=== PATIENT | male | born 1975 | race Caucasian/White ===

== ENCOUNTER 2022-10-03 10:12 | Outpatient (AMB) | payer OTHER, SELFPAY ==
--- NOTE | 2022-10-03 10:30 | MHC.OFFVIS ---
Intake Vital Signs 10/03/22 10:31 Height 5 ft 7 in Weight 194 lb 14.218 oz BMI 30.5 BP 114/73 Blood Pressure Location Lt brachial Position Sitting Pulse 66 Intake Visit Reasons: New Pt: Hemorrhoids Intake Note: Bartolo presents in office as a new.patient for a Hemorrhoids PT CC: pt reports having rectal bleeding due to hemorrhoids pt denies any other GI Issues. Byproducts Maker Required: Yes Byproducts Maker Language: Armenian Accompanied by: Self / Same As Patient Allergies No Known Allergies Allergy (Verified 10/03/22 10:33) HPI New Pt: Hemorrhoids HPI Details 47 years old male with past medical history MS, status post tonsillectomy in 2021 is here today for evaluation hemorrhoids. Patient was sent by his PCP states that his hemorrhoids are getting worse. Patient reports to have normal bowel movements. Denies melena, occasional blood after bowel movement when he wipes. Patient denies unintentional weight loss or ribbon like stools. Patient denies any diarrhea. Denies any abdominal pain or discomfort. Patient denies any other GI concerning symptoms [facility] Surgical History (Updated 10/03/22 @ 10:35 by Terrance Butcher) History of pancreatectomy Social History (Updated 10/03/22 @ 10:34 by Terrance Butcher) Household Members: Significant Other Alcohol intake: never Patient Tobacco Use Status: Never used Tobacco Review of Systems Const Denies weight gain and Denies weight loss ENT Reports no additional complaints, Denies dysphagia and Denies odynophagia Card Reports no additional complaints Resp Reports no additional complaints GI Denies abdominal pain, Denies belching, Denies melena, Denies bloating, Denies change in bowel habits, Denies dysphagia, Denies excessive flatus, Denies dyspepsia, Denies heartburn, Denies diarrhea, Denies loose stools, Denies nausea, Denies odynophagia, Denies vomiting and Reports other (rectal pain) Reports no additional complaints Musc Reports no additional complaints Neuro Reports no additional complaints Psych Reports no additional complaints Endo Reports no additional complaints Physical Exam Vital Signs: Last Vital Signs Pulse 66 10/03/22 10:31 BP 114/73 10/03/22 10:31 BMI result Body Mass Index 30.5 Const General: healthy appearing, no acute distress and well developed Nutritional Appearance: obese Orientation/consciousness: patient oriented x3 HEENT Head: Yes normal to inspection, Yes normocephalic and Yes atraumatic Face and sinus: Yes normal facial exam Mouth: Normal oral and palatal mucosa present Eyes General: appearance normal, both eyes and all related structures Neck Neck: Yes normal visual inspection, Yes full ROM and Yes trachea midline Thyroid: Thyroid normal Resp Effort & Inspection: normal respiratory effort, able to speak in complete sentences, no tracheal deviation and symmetric chest movement Auscultation: clear to auscultation bilaterally Cardio Rate: regular rate Heart sounds: S1 normal heart sound present and S2 normal heart sound present GI Inspection: Yes normal to inspection, No distended and Yes obesity Palpation (GI): Soft to palpation, not firm, nontender and No hepatosplenomegaly present Auscultation: normal bowel sounds General: Yes no CVA tenderness Back/Spine/Pelvis Back: no CVA tenderness Skin General skin exam: elasticity normal, turgor normal and dry skin Neuro General: patient oriented x3 Psych Appearance: grossly normal Mental Status: mental status grossly normal Speech and movement: Normal speech and movement present Affect: normal affect Assessment & Plan Assessment & Plan (1) Rectal pain: Code(s): K62.89 - Other specified diseases of anus and rectum Plan: Patient will try Proctosol couple times a day and will return in 5 weeks to discuss colonoscopy. Sitz baths with Epsom salts. May use donut pillow when sitting. Patient is agreeable to this plan and verbalizes understanding of instructions. He was given the opportunity to ask questions and all questions answered. Thank you for allowing me to participate in his care Medications: New hydrocortisone 2.5% (Proctosol HC) 1 appl [place] BID-QID PRN 30 grams 2RF hemorrhoids K64.9 - Unspecified hemorrhoids Coding Level of Care Code New Pt Level 3 (29442) Diagnoses Rectal pain K62.89 Time Spent (min) 40 Comment 30 minutes spent with patient and additional 10 minutes spent reviewing his records
[2022-10-03 10:31] VITALS: BP 114/73; PULSE 66; BMI 30.5
== END 2022-10-03 11:30 | disposition home or self-care (01) ==
PROVIDERS: Visit Provider Nurse Practitioner Family
DX: K62.89 Other specified diseases of anus and rectum (principal)
CPT/HCPCS: 99203

== ENCOUNTER → 2022-10-03 10:12 | Outpatient (BNVA) | payer OTHER, SELFPAY | PROVIDERS: Visit Provider Nurse Practitioner Family ==

== ENCOUNTER → 2022-11-07 15:49 | Outpatient (BNVA) | payer OTHER, SELFPAY | PROVIDERS: PCP Internal Medicine Geriatric Medicine; Visit Provider Nurse Practitioner Family ==

== ENCOUNTER 2022-11-07 15:56 | Outpatient (AMB) | payer OTHER, SELFPAY ==
--- NOTE | 2022-11-07 15:50 | MHC.OFFVIS ---
Intake Vital Signs 11/07/22 15:52 Height 5 ft 7 in Weight 191 lb 5.78 oz BMI 30.0 BP 93/62 Blood Pressure Location Lt brachial Position Sitting Pulse 73 Intake Visit Reasons: 5 week follow up Intake Note: Bartolo presents in office as a est.patient for a 5week f/u for rectal pain. PT CC: pt reports having rectal pain pt denies any other GI Issues Clinical Law Professor Required: Yes Clinical Law Professor Language: Product Applications Scientist Name: Yara Accompanied by: Self / Same As Patient Allergies No Known Allergies Allergy (Verified 11/07/22 15:53) HPI 5 week follow up HPI Details LAST VISIT: Rectal pain Patient will try Proctosol couple times a day and will return in 5 weeks to discuss colonoscopy. Sitz baths with Epsom salts. May use donut pillow when sitting. Patient is agreeable to this plan and verbalizes understanding of instructions. He was given the opportunity to ask questions and all questions answered. ? Thank you for allowing me to participate in his care Plan Medications New hydrocortisone 2.5% (Proctosol HC) 1 appl [place] BID-QID PRN 30 grams 2RF hemorrhoids K64.9 TODAY'S VISIT Patient is here today for follow-up and to discuss going for colonoscopy. Patient never had colonoscopy in the past. Patient still feels like he has perirectal discomfort. Patient denies any blood he in his stools. Patient denies any family history of colorectal cancer. No history of sleep apnea. Not on any anticoagulation medication. No history of infectious diseases in the past or present. Patient reports that he is moving his bowels without any issues. Denies any cardiac or respiratory symptoms. [facility] Surgical History History of pancreatectomy Social History Household Members: Significant Other Alcohol intake: never Patient Tobacco Use Status: Never used Tobacco Review of Systems Const Denies weight gain and Denies weight loss ENT Reports no additional complaints, Denies dysphagia and Denies odynophagia Card Reports no additional complaints Resp Reports no additional complaints GI Denies abdominal pain, Denies belching, Denies melena, Denies bloating, Denies change in bowel habits, Denies dysphagia, Denies excessive flatus, Denies dyspepsia, Denies heartburn, Denies diarrhea, Denies loose stools, Denies nausea, Denies odynophagia, Denies vomiting and Reports other (Perirectal pain) Reports no additional complaints Musc Reports no additional complaints Neuro Reports no additional complaints Psych Reports no additional complaints Endo Reports no additional complaints Physical Exam Vital Signs: Last Vital Signs Pulse 73 11/07/22 15:52 BP 93/62 11/07/22 15:52 BMI result Body Mass Index 30.0 Const General: healthy appearing, no acute distress and well developed Nutritional Appearance: obese Orientation/consciousness: patient oriented x3 HEENT Head: Yes normal to inspection, Yes normocephalic and Yes atraumatic Face and sinus: Yes normal facial exam Mouth: Normal oral and palatal mucosa present Throat: Yes posterior oropharynx normal, Yes tonsils normal and Yes uvula midline Eyes General: appearance normal, both eyes and all related structures Neck Neck: Yes normal visual inspection, Yes full ROM and Yes trachea midline Thyroid: Thyroid normal Resp Effort & Inspection: normal respiratory effort, able to speak in complete sentences, no tracheal deviation and symmetric chest movement Auscultation: clear to auscultation bilaterally Cardio Rate: regular rate Heart sounds: S1 normal heart sound present and S2 normal heart sound present GI Inspection: Yes normal to inspection, No distended and Yes obesity Palpation (GI): Soft to palpation, not firm, nontender and No hepatosplenomegaly present Auscultation: normal bowel sounds General: Yes no CVA tenderness Back/Spine/Pelvis Back: no CVA tenderness Skin General skin exam: elasticity normal, turgor normal and dry skin Neuro General: patient oriented x3 Psych Appearance: grossly normal Mental Status: mental status grossly normal Speech and movement: Normal speech and movement present Assessment & Plan Assessment & Plan (1) Rectal pain: Code(s): K62.89 - Other specified diseases of anus and rectum Plan: Patient continues with the perirectal pain. Patient states that Proctosol was not helpful. (2) Screen for colon cancer: Code(s): Z12.11 - Encounter for screening for malignant neoplasm of colon Plan: Patient denies any issues with anesthesia in the past. No history of sleep apnea. Not on any anticoagulation medications. Patient denies any cardiac or respiratory symptoms. What to expect before during and after the procedure discussed with patient. The importance of good bowel prep and clear liquid diet discussed with patient. I will see him after the procedure, sooner on as needed basis. Patient is agreeable to this plan and verbalizes understanding of instructions. He was given the opportunity to ask questions questions answered. Thank you for allowing me to participate in his care Coding Level of Care Code Est Pt Level 3 (80691) Diagnoses Rectal pain K62.89 Screen for colon cancer Z12.11 Time Spent (min) 30 Comment 20 minutes spent with patient and additional 10 minutes spent reviewing his records
[2022-11-07 15:52] VITALS: BP 93/62; PULSE 73
== END 2022-11-07 16:32 | disposition home or self-care (01) ==
PROVIDERS: PCP Internal Medicine Geriatric Medicine; Visit Provider Nurse Practitioner Family
DX: K62.89 Other specified diseases of anus and rectum (principal); Z12.11 Encounter for screening for malignant neoplasm of colon
CPT/HCPCS: 99213

== ENCOUNTER 2023-01-30 09:49 | Day surgery (SDC) | payer OTHER, SELFPAY ==
--- NOTE | 2023-01-29 09:06 | HO.ANESPROP2 ---
Documented by User: Mahsa Yeung NP 01/29/23 09:07 HPI - Anesthesia Eval Consult details Narrative: 47yo M for Colonoscopy [facility] Surgical History Surgical History History of pancreatectomy Social History Household Members: Significant Other Alcohol intake: never Patient Tobacco Use Status: Never used Tobacco Have you been hit, kicked, punched, or otherwise hurt by someone within the past year? If so, by whom?: No Advance Directives: No Advance Directives Information Provided: Yes Recently lost weight without trying: No Eating poorly because of decreased appetite: No Nutrition Risks: No Nutritional Risk Poor oral hygiene: No Meds Allergies Allergy/AdvReac Type Severity Reaction Status Date / Time No Known Allergies Allergy Verified 11/07/22 15:53 Assessment and Plan Assessment Anesthesia Assessment: Chart Reviewed Documented by User: Ashlee Hale MD 01/30/23 11:14 [facility] Family History Family history of problems with anesthesia: No Surgical History Surgical History History of pancreatectomy History of Problems with Anesthesia: No Social History Household Members: Significant Other Alcohol intake: never Patient Tobacco Use Status: Never used Tobacco Have you been hit, kicked, punched, or otherwise hurt by someone within the past year? If so, by whom?: No Advance Directives: No Advance Directives Information Provided: Yes Recently lost weight without trying: No Eating poorly because of decreased appetite: No Nutrition Risks: No Nutritional Risk Poor oral hygiene: No Meds Allergies Allergy/AdvReac Type Severity Reaction Status Date / Time No Known Allergies Allergy Verified 11/07/22 15:53 Exam Airway Mallampati Class: II TM Dist: >3cm Neck ROM: Full Assessment and Plan Assessment Anesthesia Assessment: Anesthesia Plan Discussed Final Anesthetic Review Family History of Problems with Anesthesia: No History of Problems with Anesthesia: No NPO: Yes ASA Class: II Final Preanesthetic Review: No Changes in Pt Med Stat, Meds/Allgs Chart Reviewed, Consent Obtained/Reviewed and Anes Risks/Benef Reviewed Patient Risk: Low Procedure Risk: Low Anesthetic Plan Anesthetic Plan: MAC: Disposition: Standard PACU
[2023-01-30 10:27] VITALS: BMI 29.0
[2023-01-30 10:48] VITALS: BP 114/75; PULSE 74; RESP 18; TEMP 36.9; O2SAT 98
[2023-01-30] MEDS: Lactated Ringers 1,000 ML 100 ML IVCONT (10:50)
--- NOTE | 2023-01-30 11:17 | MHC.SHP ---
Pre-Procedural Eval Section A Date of Service: 01/30/23 Section B Chief Complaint: screening Relevant Family History (Specify if Yes): No Relevant Social History: None Present Medications: see Short Stay Collaborative assessment Medical History: No relevant PMH History of Previous Operations: Relevant previous surgery/procedure and date(s) (History of pancreatectomy) Allergies: Allergies Allergy/AdvReac Type Severity Reaction Status Date / Time No Known Allergies Allergy Verified 11/07/22 15:53 Review of Systems Sugical H&P ROS: Negative: Constitution, Cardiovascular, Respiratory, Neurological, Psychiatric, Hem-Onc, Allergic/Immunologic, Gastrointestinal, Genitourinary, Musculoskeletal, Integumentary, Endocrine and Eyes/Ears/Nose/Throat Exam Surgical H&P Exam: Normal: HEENT, Normal: Heart, Normal: Lungs, Normal: Extremities, Normal: Abdomen, Normal: Skin and Normal: Neurological Plan Diagnosis/Plan: Unchanged I have reviewed the history and physical and performed a pertinent physical examination on my patient. No changes have occurred unless specified. Time Spent With Patient Time: Total time managing care of this patient today ____ minutes.
--- NOTE | 2023-01-30 11:54 | P.OP_ITS ---
Operative Note Operative Note Date of Service: 01/30/23 Narrative: Operative Information Procedure Description: Colonoscopy Indication: screening Anesthesia: MAC COLONOSCOPY Instrument: Olympus variable stiffness pediatric scope 190L Colonoscopy Monitoring: Vital signs and clinical assessment, continuous EKG monitoring, Pulse oximetry, Carbon Dioxide monitoring and blood pressure monitoring were done throughout the procedure. Colon withdrawal time was 6 minutes. Procedure: The patient was placed in the left lateral decubitis position and pre-procedure medications were administered. After a digital rectal examination of the ano-rectum, the video colonoscope was inserted into the rectum and advanced through the colon to the cecum/TI. The colonoscope was slowly withdrawn in a retrograde panoramic fashion and the colon mucosa was carefully examined including a retroflexed view of the rectum. Findings and interventions are described below. Procedure Difficulty: easy Findings: Terminal Ileum-normal Right sided retroflexion was normal Cecum:normal Ascending Colon: normal Transverse Colon -normal Descending Colon:normal Sigmoid Colon: normal Rectum: Retroflexion with small internal hemorrhoids, grade I Anorectum - normal Colon preparation: [place] Bowel Preparation Scale Right colon; 2 Transverse colon: 3 Left colon; 3 (0 = Unprepared colon segment with mucosa not seen due to solid stool that cannot be cleared. 1 = Portion of mucosa of the colon segment seen, but other areas of the colon segment not well seen due to staining, residual stool and/or opaque liquid. 2 = Minor amount of residual staining, small fragments of stool and/or opaque liquid, but mucosa of colon segment seen well. 3 = Entire mucosa of colon segment seen well with no residual staining, small fragments of stool or opaque liquid) Impression and Post Procedure Diagnosis: internal hemorrhoids Plan: High fiber diet leaflet Avoid straining at stool, epsom salts and sitz bath, anusol supps or cream Repeat Colonoscopy in 10 years or earlier if clinically indicated Above findings were reviewed with the patient and relevant handouts were provided if indicated.
[2023-01-30 12:02] VITALS: BP 98/70; PULSE 78; RESP 15; TEMP 36.4; O2SAT 96
[2023-01-30 12:17] VITALS: BP 106/75; PULSE 65; RESP 18; TEMP 36.6; O2SAT 96
== END 2023-01-30 13:28 | disposition home or self-care (01) ==
PROVIDERS: PCP Internal Medicine Geriatric Medicine; Visit Provider Internal Medicine Gastroenterology
PROC: 0DJD8ZZ Inspection of Lower Intestinal Tract, Via Natural or Artificial Opening Endoscopic (ICD-10-PCS; CPT 45378; principal; 2023-01-30 10:20)
DX: Z12.11 Encounter for screening for malignant neoplasm of colon (principal); K64.0 First degree hemorrhoids; K62.89 Other specified diseases of anus and rectum; Z90.410 Acquired total absence of pancreas
CPT/HCPCS: 45378; J0171; J2704

== ENCOUNTER → 2023-01-30 09:49 | Outpatient (BNV) | payer OTHER, SELFPAY | PROVIDERS: PCP Internal Medicine Geriatric Medicine; Visit Provider Internal Medicine Gastroenterology | DX: Z12.11 Encounter for screening for malignant neoplasm of colon (principal); K64.8 Other hemorrhoids | CPT/HCPCS: 45378 ==

== ENCOUNTER 2023-02-16 15:01 | Outpatient (AMB) | payer OTHER, SELFPAY ==
--- NOTE | 2023-02-16 15:04 | A.OFFVIS_ITS ---
Intake Vital Signs 02/16/23 15:05 Height 5 ft 7 in Weight 190 lb 0.615 oz BMI 29.8 BP 106/67 Blood Pressure Location Lt brachial Position Sitting Pulse 70 Intake Visit Reasons: s/p colo screening; Dr. Mcdonald Intake Note: Patient returns to in office visit today in post op follow up s/p colonoscopy. CC: Pt underwent colonoscopy with DR. Mcdonald on 01/30/23. He reports he continues having rectal pain and inflammation after having coffee and spicy food. Allergies No Known Allergies Allergy (Verified 11/07/22 15:53) HPI s/p colo screening; Dr. Mcdonald HPI Details LAST VISIT Rectal pain Patient continues with the perirectal pain. Patient states that Proctosol was not helpful. Screen for colon cancer Patient denies any issues with anesthesia in the past. No history of sleep apnea. Not on any anticoagulation medications. Patient denies any cardiac or respiratory symptoms. What to expect before during and after the procedure discussed with patient. The importance of good bowel prep and clear liquid diet discussed with patient. I will see him after the procedure, sooner on as needed basis. Patient is agreeable to this plan and verbalizes understanding of instructions. He was given the opportunity to ask questions questions answered. COLONOSCOPY Findings: Terminal Ileum-normal Right sided retroflexion was normal Cecum:normal Ascending Colon: normal Transverse Colon -normal Descending Colon:normal Sigmoid Colon: normal Rectum: Retroflexion with small internal hemorrhoids, grade I Anorectum - normal Colon preparation: [place] Bowel Preparation Scale Right colon; 2 Transverse colon: 3 Left colon; 3 (0 = Unprepared colon segment with mucos a not seen due to solid stool that cannot be cleared. 1 = Portion of mucosa of the colon segme nt seen, but other areas of the colon segment not well seen due to staining, residual stool and/or opaque liquid. 2 = Minor amount of residual staining, s mall fragments of stool and/or opaque liquid, but mucosa of colon segment seen well. 3 = Entire mucosa of colon segment seen well with no residual staining, small fragments of stool or opaque liquid) Impression and Post Procedure Diagnosis: internal hemorrhoids Plan: High fiber diet leaflet Avoid straining at stool, epsom salts and sitz bath, anusol supps or cream Repeat Colonoscopy in 10 years or earlier if clinically indicated * TODAY'S VISIT: Patient is here today for follow-up and to discuss colonoscopy results. Patient had no polyps and good prep. Normal colon small internal hemorrhoids found. Patient reports that occasionally depending on what he eats he will have rectal pain and burning. Patient states that usually that happens with spicy food or coffee. 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 Patient has tried Proctosol before with some results. Has not been very consistent with that. Patient denies any melena, hematochezia, unintentional weight loss or ribbon like stools. Patient denies any ill effects from the prep, anesthesia or procedure itself. [facility] Surgical History Hx of colonoscopy History of pancreatectomy Social History Household Members: Significant Other Alcohol intake: never Patient Tobacco Use Status: Never used Tobacco Review of Systems Const Denies weight gain and Denies weight loss ENT Reports no additional complaints, Denies dysphagia and Denies odynophagia Card Reports no additional complaints Resp Reports no additional complaints GI Denies abdominal pain, Denies belching, Denies melena, Denies bloating, Denies change in bowel habits, Denies dysphagia, Denies excessive flatus, Denies dyspepsia, Denies heartburn, Denies diarrhea, Denies loose stools, Denies nausea, Denies odynophagia, Denies vomiting and Reports other (Rectal pain with coffee or spicy food) Reports no additional complaints Musc Reports no additional complaints Neuro Reports no additional complaints Psych Reports no additional complaints Endo Reports no additional complaints Physical Exam Vital Signs: Last Vital Signs Pulse 70 02/16/23 15:05 BP 106/67 12/15/23 15:05 BMI result Body Mass Index 29.8 Const General: healthy appearing, no acute distress and well developed Nutritional Appearance: obese Orientation/consciousness: patient oriented x3 HEENT Head: Yes normal to inspection, Yes normocephalic and Yes atraumatic Face and sinus: Yes normal facial exam Mouth: Normal oral and palatal mucosa present Throat: Yes posterior oropharynx normal, Yes tonsils normal and Yes uvula midline Eyes General: appearance normal, both eyes and all related structures Neck Neck: Yes normal visual inspection, Yes full ROM and Yes trachea midline Thyroid: Thyroid normal Resp Effort & Inspection: normal respiratory effort, able to speak in complete sentences, no tracheal deviation and symmetric chest movement Auscultation: clear to auscultation bilaterally Cardio Rate: regular rate GI Inspection: Yes normal to inspection, No distended and Yes obesity Palpation (GI): Soft to palpation, not firm, nontender and No hepatosplenomegaly present Auscultation: normal bowel sounds General: Yes no CVA tenderness Back/Spine/Pelvis Back: no CVA tenderness Skin General skin exam: elasticity normal, turgor normal and dry skin Neuro General: patient oriented x3 Psych Appearance: grossly normal Mental Status: mental status grossly normal Assessment & Plan Assessment & Plan (1) Rectal pain: Code(s): K62.89 - Other specified diseases of anus and rectum (2) Rectal burning: Code(s): R20.8 - Other disturbances of skin sensation (3) Status post colonoscopy: Code(s): Z98.890 - Other specified postprocedural states Plan No polyps found, colonoscopy in 10 years, sooner if clinically necessary. Patient was advised to try to do Sitz baths with Epsom salts. He can use stool softener. Trying to avoid spicy food and coffee as much as possible. Hydrocortisone cream ordered for his hemorrhoids. Patient will follow-up in the office on as needed basis. He is agreeable to this plan and verbalizes understanding of instructions. He was given the opportunity to ask questions and all questions answered. Thank you for allowing me to participate in his care Medications: Refilled hydrocortisone 2.5% (Proctosol HC) 1 appl IN BID-QID PRN 30 grams 2RF hemorrhoids K64.9 - Unspecified hemorrhoids Coding Level of Care Code Est Pt Level 3 (47804) Diagnoses Rectal pain K62.89 Rectal burning R20.8 Status post colonoscopy Z98.890 Time Spent (min) 30 Comment 20 minutes spent with patient and additional 10 minutes spent reviewing his records
[2023-02-16 15:05] VITALS: BP 106/67; PULSE 70; BMI 29.8
== END 2023-02-16 15:31 | disposition home or self-care (01) ==
PROVIDERS: PCP Internal Medicine Geriatric Medicine; Visit Provider Nurse Practitioner Family
DX: K62.89 Other specified diseases of anus and rectum (principal); R20.8 Other disturbances of skin sensation; Z98.890 Other specified postprocedural states
CPT/HCPCS: 99213

== ENCOUNTER → 2023-02-16 15:01 | Outpatient (BNVA) | payer OTHER, SELFPAY | PROVIDERS: PCP Internal Medicine Geriatric Medicine; Visit Provider Nurse Practitioner Family ==

== ENCOUNTER 2023-06-25 08:04 | Outpatient (REF) | payer OTHER, SELFPAY ==
[2023-06-25 12:11] LABS: Estimated Average Glucose 120 mg/dL; Hemoglobin A1c % 5.8 % (<6.0)
[2023-06-25 12:21] LABS: Alanine Aminotransferase 32 U/L (0-40); Albumin Level 4.3 g/dL (3.5-5.0); Alkaline Phosphatase 73 U/L (39-117); Anion Gap 11 (12-20); Aspartate Amino Transferase 27 U/L (5-37); Bilirubin Total 0.7 mg/dL (0.0-1.0); Blood Urea Nitrogen 8 mg/dL (9-16); Calcium 9.3 mg/dL (8.4-10.2); Carbon Dioxide 26 mmol/L (22-29); Chloride 107 mmol/L (96-108); Cholesterol 199 mg/dL (<200); Estimated Glomerular Filt Rate > 60; Glucose Random 103 mg/dL (60-115); HDL Cholesterol 41 mg/dL (>40); LDL Cholesterol Calculated 118 mg/dL (<100); Potassium 3.8 mmol/L (3.3-5.1); Sodium 140 mmol/L (135-145); Total Protein 7.4 g/dL (6.5-8.0); Triglycerides 203 mg/dL (<150)
[2023-06-25 12:41] LABS: TSH reflex Free T4 4.89 uIU/mL (0.32-4.0)
[2023-06-25 12:42] LABS: Prostate Specific Antigen 0.52 ng/mL (<0.05-4.0)
[2023-06-25 13:31] LABS: Free T4 (Free Thyroxine) 0.77 ng/dL (0.71-1.85)
== END 2023-06-25 08:05 | disposition home or self-care (01) ==
LOC: HO.HHCL 08:04
PROVIDERS: Visit Provider Internal Medicine Geriatric Medicine
DX: Z12.5 Encounter for screening for malignant neoplasm of prostate (principal); R73.03 Prediabetes; E03.8 Other specified hypothyroidism
CPT/HCPCS: 36415; 80053; 80061; 83036; 84153; 84439; 84443

== ENCOUNTER 2023-12-31 08:08 | Outpatient (REF) | payer OTHER, SELFPAY ==
[2023-12-31 12:28] LABS: TSH reflex Free T4 4.99 uIU/mL (0.32-4.0)
== END 2023-12-31 08:09 | disposition home or self-care (01) ==
LOC: HO.HHCL 08:08
PROVIDERS: Visit Provider Internal Medicine Geriatric Medicine
DX: R79.89 Other specified abnormal findings of blood chemistry (principal)
CPT/HCPCS: 36415; 84439; 84443

== ENCOUNTER 2024-06-24 15:52 | Outpatient (REF) | payer OTHER, SELFPAY ==
--- NOTE | ~2024-06-24 | XR_ITS ---
EXAMINATION: Bilateral knee 4 views each. CLINICAL INDICATION: Chronic knee pain. FINDINGS: RIGHT KNEE: AP standing, lateral, oblique and sunrise views. There is maintained tricompartment joint space without any bony erosive changes, loose bodies or fracture. No soft tissue swelling seen. LEFT KNEE: 4 views left knee reveals maintained medial and lateral compartment joint space. No loose bodies, joint effusion or fracture. The patellofemoral compartment joint space is maintained. XR/XR Knee Ayan 4V IMPRESSION: Unremarkable bilateral knee exam. Electronically signed by: Kennedy Nassar MD 06/24/2024 04:31 PM EDT
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
--- OUTSIDE RECORDS SUMMARY | 2024-06-24 18:36 | XMS_ITS | Encounter Summary ---
Author Organization [employer] Address [address] [place] [address] Care Team Providers Care Floor Surfacer Name Role Phone Name, Pedro OLGUIN Primary Care Provider [phone] Reason for Visit * Reason Onset Date Comments Referral 03/30/2023 Referral Authorized 04/03/2023 Encounter Details Date Type Department Care Team ([facility] st Contact Info) Description 03/30/2023 Telephone [facility] [address] [place], [place] [phone] Name, MD Pedro [address] [place] [address] Referral; Referral Authorized Social History Tobacco Use Types Packs/Day Years Used Date Smoking Tobacco: Never Smokeless Tobacco: Never Sex and Gender Information Value Date Recorded Sex Assigned at Male 02/22/2022 2:30 PM EST Legal Sex Male 8:37 PM EDT Gender Identity Male 02/22/2022 2:30 PM EST Sexual Orientation Straight 02/22/2022 2: 30 PM EST documented as of this encounter Miscellaneous Notes * Telephone Encounter - Elenita Barrett - 04/03/2023 12:35 PM EST Referral for Physical Therapy authorized to [facility] [address] [address] FAX [phone] Letter mailed to patient to book appt. * Telephone Encounter - Su Etienne - 03/30/2023 9:46 AM EST Tc from pt requesting where he was going to be referral for physical therapy . Write did see referral is still pending . documented in this encounter Plan of Treatment Not on file documented as of this encounter Visit Diagnoses Not on filedocumented in this encounter Care Teams Floor Surfacer Relationship Specialty Start Date End Date Name, MD Pedro [address] [place] [address] PCP - General Family Medicine 05/08/17 documented as of this encounter
--- OUTSIDE RECORDS SUMMARY | 2024-06-24 18:36 | XMS_ITS | Encounter Summary ---
Author Organization [employer] Address [address] [facility] [address] 7[address] [place] [address] Care Team Providers Care Science Consultant Name Role Phone Name, Pedro OLGUIN Primary Care Provider Encounter Details Date Type Department Care Team (Latest Contact Info) Description 06/24/2024 Travel Social History Tobacco Use Types Packs/Day Years Used Date Smoking Tobacco: Never Smokeless Tobacco: Never Alcohol Use Standard Drinks/Week Comments Never 0 [...] PM EST documented as of this encounter Plan of Treatment Not on file documented as of this encounter Visit Diagnoses Not on filedocumented in this encounter Additional Health Concerns Assessment Noted Time PHQ-9 Depression Total Score: 6 06/25/19 25 3:19 PM EDT documented as of this encounter Care Teams Science Consultant Relationship Specialty Start Date End Date Name, MD Pedro [address] [place] [address] PCP - General Family Medicine 05/08/17 documented as of this encounter
--- OUTSIDE RECORDS SUMMARY | 2024-06-24 18:36 | XMS_ITS | Encounter Summary ---
Author Organization [employer] Address [address] [facility] 7t [place] [address] Care Team Providers Care Inspector Poising Name Role Phone Name, Pedro OLGUIN Primary Care Provider [phone] Reason for Visit * Reason Comments Annual Exam Encounter Details Date Type Department Care Team ([facility] st Contact Info) Description 06/24/2024 2:45 PM EDT Office Visit [facility] MED[facility] [address] [place], [place] [phone] Name, MD Pedro [address] [place] [address] PE (physical exam), routine (Primary Dx); Chronic pain of both knees; Subclinical hypothyroidism; Obstructive sleep apnea; Encounter for immunization; Prediabetes Social History Tobacco Use Types Packs/Day Years [...] PM EST documented as of this encounter Last Filed Vital Signs Vital Sign Reading [...] Mass Index 30.17 06/24/2024 2:50 PM EDT documented in this encounter Progress Notes * Pedro Brooks MD - 06/24/2024 2:45 PM EDT Subjective Patient ID: Bartolo Fritz is a 49 y.o. male who presents for Annual Exam. Patient comes for a PE He feels well He denies any Sz in several years No LINDA symptoms since his tonsillectomy about 2 years ago He complains of knee pain when he walks He has stress related to his economical situation He agreed with PCV 20 vaccine today He is up to date with his colonoscopy that was normal 2023 His PSA was 0.52 a year ago. He has a good exercise tolerance and he does not drink alcohol, no smoking and no illicit drug use. Review of Systems Constitutional: Negative for chills, fatigue, fever and unexpected weight change. HENT: Negative for sore throat. Respiratory: Negative for cough, chest tightness and shortness of breath. Cardiovascular: Negative for chest pain, palpitations and leg swelling. Gastrointestinal: Negative for abdominal pain and blood in stool. Endocrine: Negative for cold intolerance. Musculoskeletal: See HPI Visit Vitals BP 109/75 (BP Location: Left arm, Patient Position: Sitting, BP Cuff Size: Large adult) Pulse 70 Temp 98.6 ??F (37 ??C) (Oral) Resp 16 Ht 5' 7 (1.702 m) Wt 192 lb 9.6 oz (87.4 kg) SpO2 95% BMI 30.17 kg/m?? Smoking Status Never BSA 2.03 m?? Objective Physical Exam Constitutional: Appearance: Normal appearance. Cardiovascular: Rate and Rhythm: Normal rate and regular rhythm. Heart sounds: No murmur heard. Pulmonary: Effort: Pulmonary effort is normal. No respiratory distress. Breath sounds: No wheezing, rhonchi or rales. Abdominal: Palpations: Abdomen is soft. Tenderness: There is no abdominal tenderness. Musculoskeletal: Right lower leg: No edema. Left lower leg: No edema. Neurological: Mental Status: He is alert. Latest Reference Range & Units 06/25/23 08:07 12/31/23 08:09 06/24/24 14:52 06/24/24 14:54 Glucose 60 - 115 mg/dL 103 Urea Nitrogen (BUN) 9 - 16 mg/dL 8 (L) Creatinine, Serum 0.5 - 1.4 mg/dL 0.81 Sodium 135 - 145 mmol/L 140 Potassium 3.3 - 5.1 mmol/L 3.8 Chloride 96 - 108 mmol/L 107 Carbon Dioxide 22 - 29 mmol/L 26 Calcium 8.4 - 10.2 mg/dL 9.3 Albumin Level 3.5 - 5.0 g/dL 4.3 Bilirubin, Total 0.0 - 1.0 mg/dL 0.7 AST 5 - 37 U/L 27 ALT 0 - 40 U/L 32 Anion Gap 12 - 20 11 (L) Total Protein 6.5 - 8.0 g/dL 7.4 Cholesterol <200 mg/dL 199 HDL Cholesterol >40 mg/dL 41 LDL Cholesterol Calculated <100 mg/dL 118 (H) Triglycerides <150 mg/dL 203 (H) Glucose Blood, POC 60 - 200 mg/dL 89 Hemoglobin A1c 4.0 - 6.0 % 5.8 5.7 TSH reflex Free T4 0.32 - 4.0 uIU/mL 4.89 (H) 4.99 (H) Alkaline Phosphatase 39 - 117 U/L 73 ESTIMATED AVERAGE GLUCOSE mg/dL 120 Estimated Glomerular Filt Rate >60 Free T4 (Free Thyroxine) 0.71 - 1.85 ng/dL 0.77 0.80 Prostate Specific Antigen <0.05 - 4.0 ng/mL 0.52 (L): Data is abnormally low (H): Data is abnormally high Assessment/Plan Diagnoses and all orders for this visit: PE (physical exam), routine Comments: I recommend regular physical activity Avoid sweets and soda Check knee x-ray to rule out DJD. He is recommended acetaminophen as needed up to 3 times a day forknee pain Recheck TSH since he has mild elevation of TSH with normal T4 consistent with subclinical hypothyroidism. He does not have any symptoms of hypothyroidism. PCV 20 vaccine today. He is up-to-date with colonoscopy and PSA. Chronic pain of both knees - XR Knee 4+ Views Left; Future - XR Knee 4+ Views Right; Future Subclinical hypothyroidism - TSH W/Reflex to FT4; Future Obstructive sleep apnea Encounter for immunization - PCV-20 VACCINE 6 wks + Prediabetes - POCT Glucose - POCT HGB A1C documented in this encounter Plan of Treatment Scheduled Orders Name Type Priority Associated Diagnoses Orde r Schedule TSH W/Reflex to FT4 Lab Routine Subclinical hypothyroidism Expected: 06/24/2024 (Approximate), Expires: 06/24/2025 XR Knee 4+ Views Left Imaging Routine Chronic pain of both knees Expected: 06/24/2024, Expires: 06/24/2025 documented as of this encounter Procedures Procedure Name Priority Date/Time Associated Diagnosis Comments XR KNEE 4+ VIEWS BILATERAL Routine 06/24/2024 3:52 PM EDT POCT GLYCATED HEMOGLOBIN, TOTAL Routine 06/24/2024 2:54 PM EDT Prediabetes POCT GLUCOSE Routine 06/24/2024 2:52 PM EDT Prediabetes documented in this encounter Results * XR Knee 4+ Views Bilateral (06/24/2024 3:52 PM EDT) Anatomical Region Laterality Modality Lower Extremities, Knee Bilateral Radiogra phic Imaging 06/24/2024 3:52 PM EDT Narrative 06/24/2024 4:34 PM EDT ?[facility] ?[address] ?[place] [address] ?XRay Report ? Signed ? Patient: Bartolo Webb ?MR#: [id number] ?? [id number] ? : 1975 ?Acct:[id number] ? Age/Sex: 49 / M ?ADM Date: 06/24/24 ? Loc: HO.HHCX ? Attending Dr: Pedro Brooks MD ? Ordering Physician: Pedro Brooks MD ?? Date of Service: 06/24/24 ?? Procedure(s): XR Knee Ayan 4V ?? Accession Number(s): [id number] ? cc: Pedro Brooks MD ? EXAMINATION: [...] knee exam. ? Electronically signed by: ??Kennedy Maday MD ??06/24/2024 04:31 PM EDT RP ? Dictated By: ?Maday,Kennedy S MD ? Signed By: ?<Electronically signed by Kennedy S Maday, MD in OV> ?06/24/24 1631 ? DD/ 1552 ? TD/TT: 06/24/24 1600 ? Wrap Yarn Sorter: MSM ? Procedure Note Dionna Image - 06/24/2024 [facility] [address] [place] [address] XRay Report Signed Patient: Bartolo WebbMR#: [id number] : 1975Acct:[id number] Age/Sex: 49 / MADM Date: 06/24/24 [facility]: Pedro Brooks MD Ordering Physician: Pedro Brooks MD Date of Service: 06/24/24 Procedure(s): XR Knee Ayan 4V Accession Number(s): [id number] cc: Pedro Brooks MD EXAMINATION: Bilateral knee [...] Kennedy Nassar MD 06/24/2024 04:31 PM EDT Dictated By: Kennedy Nassar MD Signed By: <Electronically signed by Kennedy Nassar MD in OV> 06/24/24 1631 DD/ 1552 TD/TT: 06/24/24 1600 Wrap Yarn Sorter: JACKIE us Pedro Brooks MD IMG XR [...] specimen / Unknown 06/24/2024 2:52 PM EDT Pedro Brooks MD POINT OF CARE TEST ENTER/EDIT OR DERABLES Final Result documented in this encounter Visit Diagnoses Diagnosis PE (physical exam), routine- Primary Chronic pain of both knees Subclinical hypothyroidism Other specified acquired hypothyroidism Obstructive sleep apnea Obstructive sleep apnea (adult) (pediatric) Encounter for immunization Prediabetes Other abnormal glucose documented in this encounter Additional Health Concerns Assessment Noted Time PHQ-9 Depression Total Score: 6 06/25/19 25 3:19 PM EDT documented as of this encounter Care Teams Inspector Poising Relationship Specialty Start Date End Date Name, MD Pedro [address] [place] [id number] PCP - General Family Medicine 05/08/17 documented as of this encounter
== END 2024-06-24 15:53 | disposition home or self-care (01) ==
LOC: HO.HHCX 15:52
PROVIDERS: Visit Provider Internal Medicine Geriatric Medicine
DX: M25.561 Pain in right knee (principal); M25.562 Pain in left knee
CPT/HCPCS: 73564

== ENCOUNTER → 2024-06-24 15:52 | Outpatient (BNV) | payer OTHER, SELFPAY | PROVIDERS: Visit Provider Radiology Diagnostic Radiology | DX: M25.561 Pain in right knee (principal); M25.562 Pain in left knee | CPT/HCPCS: 73564 ==

== ENCOUNTER 2024-06-24 16:13 | Outpatient (REF) | payer OTHER, SELFPAY ==
[2024-06-24 19:15] LABS: TSH reflex Free T4 4.97 uIU/mL (0.32-4.0)
[2024-06-24 20:03] LABS: Free T4 (Free Thyroxine) 0.82 ng/dL (0.71-1.85)
== END 2024-06-24 16:14 | disposition home or self-care (01) ==
LOC: HO.HHCL 16:13
PROVIDERS: Visit Provider Internal Medicine Geriatric Medicine
DX: E03.8 Other specified hypothyroidism (principal)
CPT/HCPCS: 36415; 84439; 84443

== ENCOUNTER 2024-11-25 16:16 | Outpatient (REF) | payer OTHER, SELFPAY ==
--- OUTSIDE RECORDS SUMMARY | 2016-05-15 | XMS_ITS | Encounter Summary ---
Author Organization [facility] Address [address] [place] [address] Phone Care Team Providers Care Vision Specialist Name Role Phone Unavailable Primary Care Provider Unavailabl e Encounter Details Date Type Department Care Team (Late st Contact Info) Description 05/15/2016 Hospital Encounter [facility] [address] [place] [address] Alexander Rogers MD [email or web address] Social History Tobacco Use Types Packs/Day Years Used Date Smoking Tobacco: Never Smokeless Tobacco: Never Alcohol Use Standard Drinks/Week Comments No 0 (1 standard drink = 0.6 oz pur e alcohol) Education Answer Date Recorded Are you interested in more education? Not on mohan e 06/30/2022 Are you concerned about learning? Not on file 06/30/2022 No 06/30/2022 No 06/30/2022 Digital Access Answer Date Recorded No 07/30/2022 No 07/30/2022 No 07/30/2022 Reliable internet access at home? Not on file 07/30/2022 Device with a working camera? Not on file Sex and Gender Information Value Date Recorded Sex Assigned at Not on file Legal Sex Male 4:30 PM EDT Gender Identity Not on file Sexual Orientation Not on file documented as of this encounter Plan of Treatment Not on file documented as of this encounter Procedures Procedure Name Priority Date/Time Associated Diagnosis Comments CT HEAD OUTSIDE (NO INTERPRETATION) Routine 05/15/2016 12:00 AM EDT documented in this encounter Results * CT Head Outside (No Interpretation) (05/15/2016 12:00 AM EDT) Narrative [facility] INTERFACES - 05/16/2016 10:17 PM EDT This study is for PACS storage only and not for interpretation. us Alexander Rogers MD IMG OUTSIDE IMAGING W/OUT INTERPRETATION Final Result [facility] documented in this encounter Visit Diagnoses Not on filedocumented in this encounter Additional Health Concerns Infection Onset Date Last Indicated Resolved Time COVID-19 Comment:External results received from Care Everywhere imported on 03/17/2020; note original date test obtained; contact Infection Control with any questions 11/01/2019 11/01/2019 11/21/2019 12:00 AM EDT documented as of this encounter Additional Source Comments The information contained in this document represents components of the legal health record. It is not the complete legal health record.[facility]
--- OUTSIDE RECORDS SUMMARY | 2016-05-16 | XMS_ITS | Encounter Summary ---
Author Organization [facility] Address [address] [place] [address] Phone Care Team Providers Care Retail Coverage Merchandiser Lead Name Role Phone Unknown, Unknown Primary Care Provider Gwen pantoja Encounter Details Date Type Department Care Team (Late st Contact Info) Description 05/16/2016 Hospital Encounter [facility] [address] [place] [address] Alexander Rogers MD [email or web address] Social History Tobacco Use Types Packs/Day Years [...] Procedure Name Priority Date/Time Associated Diagnosis Comments MRI BRAIN OUTSIDE WITH INTERPRETATION OR CONSULT Routine 05/16/2016 12:00 AM EDT documented in this encounter Results * MRI Brain Outside With Interpretation Or Consult (05/16/2016 12:00 AM EDT) 05/17/2016 2:17 PM EDT Addenda Addendum by Mendy Artis MD on 05/17/2016 2:35 PM EDT ADDENDUM: On further review of the images, there is subtle peripheral enhancement associated with the focal lesion in the right ventral medulla. The focality of the lesion and mild surrounding T2/FLAIR hyperintensity raises the possibility of an infectious etiology such as Listeria microabscess. Further evaluation on follow-up MRI could be performed with perfusion, MR spectroscopy and high-resolution post-contrast and CISS/FIESTA sequences. These findings were discussed with Yara Greco MD, at the time of interpretation, 05/17/2016 2:35 PM, who responded indicating the communication was understood. Impressions [facility] - 05/17/2016 10:35 AM EDT Slightly expansile T2 hyperintense enhancing lesion in the right ventral medulla. Differential considerations include neoplasm versus a demyelinating lesion. This report is limited to the body part and modality requested, regardless of which images were uploaded. If additional reports are required, please contact the appropriate division of the Radiology Department. Narrative [facility] - 05/17/2016 10:35 AM EDT Interpretation of outside MR scan of the brain. HISTORY: As in header. Additional history includes 3 weeks of left leg numbness and progressive left arm and leg weakness. TECHNIQUE: MRI of the brain with and without intravenous contrast. COMPARISON: Outside head CT 05/15/2016. FINDINGS: In the right ventral medulla is an ovoid homogeneously enhancing, T1 hypointense and T2 hyperintense slightly expansile lesion measuring 11 x 7 x 5 mm (SI, TV, AP). There is no restricted diffusion or intrinsic susceptibility artifact. No other lesions are identified. There is no evidence of intracranial hemorrhage or acute infarction. The ventricles, sulci and cisterns are within normal limits in size and configuration. The flow voids of the major intracranial vessels appear intact. There is scattered paranasal sinus mucosal thickening. The mastoid air cells appear clear. The bones and extracranial soft tissues are unremarkable. Procedure Note Mendy Artis MD - 05/17/2016 Interpretation of outside MR scan of the brain. HISTORY: As in header. Additional history includes 3 weeks of left legnumbness and progressive left arm and leg weakness. TECHNIQUE: MRI of the brain with and without intravenous contrast. COMPARISON: Outside head CT 05/15/2016. FINDINGS: In the right ventral medulla is an ovoid homogeneously enhancing, [id number] and T2 hyperintense slightly expansile lesion measuring 11 x 7 x 5 mm (SI,TV, AP). There is no restricted diffusion or intrinsic susceptibilityartifact. No other lesions are identified. There is no evidence of intracranial hemorrhage or acute infarction. The ventricles, sulci and cisterns are within normal limits in size and configuration. The flow voids of the major intracranial vessels appear intact. There is scattered paranasal sinus mucosal thickening. The mastoid aircells appear clear. The bones and extracranial soft tissues are unremarkable. IMPRESSION: Slightly expansile T2 hyperintense enhancing lesion in the right ventral medulla. Differential considerations include neoplasm versus ademyelinating lesion. This report is limited to the body part and modality requested, regardlessof which images were uploaded. If additional reports are required, pleasecontact the appropriate division of the Radiology Department. us Alexander Rogers MD IMG OUTSIDE IMAGING W/ IN TERPRETATION Edited Result - Final [facility] [address] [place] [address] documented in this encounter Visit Diagnoses Not on filedocumented in this encounter Additional Health Concerns Infection Onset Date Last Indicated Resolved Time COVID-19 Comment:External results received from Care Everywhere imported on 03/17/2020; note original date test obtained; contact Infection Control with any questions 11/01/2019 11/01/2019 11/21/2019 12:00 AM EDT documented as of this encounter Care Teams Retail Coverage Merchandiser Lead Relationship Specialty Start Date End Date Unknown, Unknown, PCP - General 05/16/16 01/29/17 documented as of this encounter Additional Source Comments The information contained in this document represents components of the legal health record. It is not the complete legal health record.[facility]
--- OUTSIDE RECORDS SUMMARY | 2024-11-25 15:30 | XMS_ITS | Encounter Summary ---
Author Organization [employer] Address [address] [facility] 7 [place] [address] Care Team Providers Care Employee Health Nurse Name Role Phone Name, Pedro OLGUIN Primary Care Provider [phone] Reason for Visit * Reason Comments Follow-up Encounter Details Date Type Department Care Team (Latest Contact Info) Description 11/25/2024 3:30 PM EDT Office Visit [facility] MEDICINE [address] [place], [place] [phone] Name, MD Pedro [address] [place] [address] Hemorrhoids, unspecified hemorrhoid type (Primary Dx); Subclinical hypothyroidism Social History Tobacco Use Types Packs/Day Years [...] Sign Reading Time Taken Comments Blood Pressure 112/72 11/25/2024 3:47 PM EDT Pulse 70 11/25/2024 3:47 PM EDT Temperature 36.8 C (98.2 F) 11/25/2024 3:47 PM EDT Respiratory Rate 12 11/25/2024 3:47 PM EDT Oxygen Saturation 97% 11/25/2024 3:47 PM EDT Inhaled Oxygen Concentration - - Weight 88.9 kg (196 lb) 11/25/2024 3:47 PM EDT Height 170.2 cm (5' 7 ) 11/25/2024 3:47 PM EDT Body Mass Index 30.7 11/25/2024 3:47 PM EDT documented in this encounter Progress Notes * Pedro Brooks MD - 11/25/2024 3:30 PM EDT Subjective Patient ID: Bartolo Fritz is a 49 y.o. male who presents for Follow-up. Patient comes for a follow-up visit. The patient is doing well. 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 He complains of occasional anal discomfort secondary to hemorrhoids worse after spicy food. Noblood in the stool. He had a normal colonoscopy in 2022. He has personal history of subclinical hypothyroidism. He denies cold intolerance. No significant weight gain. Review of Systems Constitutional: Negative for chills, fatigue and fever. HENT: Negative for sore throat. Respiratory: Negative for cough, chest tightness and shortness of breath. Cardiovascular: Negative for chest pain, palpitations and leg swelling. Gastrointestinal: Negative for abdominal pain and blood in stool. Neurological: Continues to be seizure-free and has been for many years. Objective Vitals: 11/25/24 1547 BP: 112/72 BP Location: Left arm Patient Position: Sitting BP Cuff Size: Adult Pulse: 70 Resp: 12 Temp: 98.2 ??F (36.8 ??C) TempSrc: Temporal SpO2: 97% Weight: 196 lb (88.9 kg) Height: 5' 7 (1.702 m) Physical Exam Constitutional: Appearance: Normal appearance. Cardiovascular: [...] edema. Neurological: Mental Status: He is alert. Lab Results Component Value Date TSH 4.97 (H) 06/24/2024 TSH 4.99 (H) 12/31/2023 TSH 4.89 (H) 06/25/2023 FREET4 0.82 06/24/2024 FREET4 0.80 12/31/2023 FREET4 0.77 06/25/2023 Assessment/Plan Diagnoses and all orders for this visit: Hemorrhoids, unspecified hemorrhoid type Comments: I prescribed the patient topical steroid cream. I recommended to eat more vegetables, regular physical activity, drink plenty of water. Subclinical hypothyroidism Comments: Recheck thyroid function testing prior to next visit. Orders: - TSH W/Reflex to FT4; Future Other orders - hydrocortisone (Anusol-HC) 2.5 % rectal cream; INSERT INTO THE RECTUM TWICE A DAY documented in this encounter Plan of Treatment Scheduled Orders Name Type Priority Associated Diagnoses Orde r Schedule TSH W/Reflex to FT4 Lab Routine Subclinical hypothyroidism Expected: 11/25/2024 (Approximate), Expires: 11/25/2025 documented as of this encounter Visit Diagnoses Diagnosis Hemorrhoids, unspecified hemorrhoid type- Primary Subclinical hypothyroidism Other specified acquired hypothyroidism documented in this encounter Additional Health Concerns Assessment Noted Time PHQ-9 Depression Total Score: 6 06/25/19 25 3:19 PM EDT documented as of this encounter Care Teams Employee Health Nurse Relationship Specialty Start Date End Date Name, MD Pedro [address] [place] [address] PCP - General Family Medicine 05/08/17 documented as of this encounter
--- OUTSIDE RECORDS SUMMARY | 2024-11-25 18:39 | XMS_ITS | Encounter Summary ---
Author Organization [facility] Address [address] [place] [address] Phone Care Team Providers Care Decator Operator Name Role Phone Unknown, Unknown Primary Care Provider Samuel Ellsworth, PhD Unavailable [phone] Shiv Stephenson MD Unavailable [phone] Shiv Stephenson MD Primary Care Provider + Shirley Jones MD Primary Care Provider Shiv Stephenson MD Primary Care Provider + Zehra Osborne RNmajor gifts director Provider Geoff Boo MD Primary Care Provider [phone] Pedro Brooks MD Primary Care Provider [phone] Encounter Details Date Type Department Care Team (Late st Contact Info) Description 05/17/2016 Procedure Pass [facility], [address] [facility], 6th [place] [address] Social History Tobacco Use Types Packs/Day Years [...] documented as of this encounter Care Teams Decator Operator Relationship Specialty Start Date End Date Unknown, Unknown, MD PCP - General 05/16/16 01/29/17 Shiv Stephenson MD [address] [place] [phone] [email or web address] PCP - General Family Medicine 01/30/17 02/18/17 Shirley Jones MD [address] [place] [phone] [email or web address] PCP - General Internal Medicine 02/19/17 11/28/18 Shiv Stephenson MD [address] [place] [phone] [email or web address] PCP - General Family Medicine 11/29/18 09/14/19 Zehra Osborne RN [address] [place] [phone] [email or web address] PCP - General Internal Medicine 09/15/19 01/13/20 Geoff Boo MD [address] [place] [phone] [email or web address] PCP - General Internal Medicine 01/14/20 04/15/20 Pedro Brooks MD [address] [place] [address] PCP - General Geriatric Psychiatry 04/16/20 Samuel Da Silva MBBS, PhD [address] [place] [address] [email or web address] Historical LMR Provider 12/23/1603/12/21 Shiv Stephenson MD [address] [place] [address] [address] [place] [address] [email or web address] Historical LMR Provider 12/23/16 documented as of this encounter Additional Source Comments The information contained in this document represents components of the legal health record. It is not the complete legal health record.[facility]
--- OUTSIDE RECORDS SUMMARY | 2024-11-25 18:39 | XMS_ITS | Encounter Summary ---
Author Organization [employer] Address [address] [facility] 7t [place] [address] Care Team Providers Care Postal Service Sectional Center Manager Name Role Phone Name, Pedro OLGUIN Primary Care Provider [phone] Reason for Visit * Reason Onset Date Comments chart prep 11/24/2024 Encounter Details Date Type Department Care Team ([facility] st Contact Info) Description 11/24/2024 Telephone [facility] MEDICINE [address] [place], [place] [phone] Andra Doe MA chart prep Social History Tobacco Use Types Packs/Day Years [...] encounter Miscellaneous Notes * Telephone Encounter - Andra Doe MA - 11/24/2024 11:57 AM EDT Chart Prep Labs: done Images: done Referrals: not applicable Vaccines due: Covid, Flu, Hep B, and Zoster Screenings: not applicable Overdue care gaps: SBIRT, PRE-DM documented in this encounter Plan of Treatment Not on file documented as of this encounter Visit Diagnoses Not on filedocumented in this encounter Additional Health Concerns Assessment Noted Time PHQ-9 Depression Total Score: 6 06/25/19 25 3:19 PM EDT documented as of this encounter Care Teams Postal Service Sectional Center Manager Relationship Specialty Start Date End Date Name, MD Pedro [address] [place] [address] PCP - General Family Medicine 05/08/17 documented as of this encounter
--- OUTSIDE RECORDS SUMMARY | 2024-11-25 18:39 | XMS_ITS | Encounter Summary ---
Author Organization [facility] Address [address] [place] [address] Phone Care Team Providers Care Inspector Assembly Name Role Phone Unknown, Unknown Primary Care Provider Samuel Ellsworth, PhD Unavailable [phone] Shiv Stephenson MD Unavailable [phone] Shiv Stephenson MD Primary Care Provider + Shirley Jones MD Primary Care Provider Shiv Stephenson MD Primary Care Provider + Zehra Osborne RNcentrifugal operator Provider [phone] Geoff Boo MD Primary Care Provider [phone] Pedro Brooks MD Primary Care Provider [phone] Encounter Details Date Type Department Care Team (Late st Contact Info) Description 05/17/2016 Procedure Pass [facility], Lunder 6 [address] [facility], 6th [place] [address] Social History Tobacco Use Types Packs/Day Years [...] as of this encounter Care Teams Inspector Assembly Relationship Specialty Start Date End Date Unknown, Unknown, MD PCP - General 05/16/16 01/29/17 Shiv Stephenson MD [address] [place] [address] [email or web address] PCP - General Family Medicine 01/30/17 02/18/17 Shirley Jones MD [address] [place] [phone] [email or web address] PCP - General Internal Medicine 02/19/17 11/28/18 Shiv Stephenson MD [address] [place] [phone] [email or web address] PCP - General Family Medicine 11/29/18 09/14/19 Zehra Osborne RN [address] [place] [address] [email or web address] PCP - General Internal Medicine 09/15/19 01/13/20 Geoff Boo MD [address] [place] [phone] [email or web address] PCP - General Internal Medicine 01/14/20 04/15/20 Pedro Brooks MD [address] [place] [phone] PCP - General Geriatric Psychiatry 04/16/20 Samuel Da Silva MBBS, PhD [address] [place] [address] [email or web address] Historical LMR Provider 12/23/1603/12/21 Shiv Stephenson MD [address] [place] [address] [address] [place] [address] [email or web address] LMR Provider 12/23/16 documented as of this encounter Additional Source Comments The information contained in this document represents components of the legal health record. It is not the complete legal health record.[facility]
--- OUTSIDE RECORDS SUMMARY | 2024-11-25 18:39 | XMS_ITS | Encounter Summary ---
Author Organization [facility] Address [address] [place] [address] Phone Care Team Providers Care Roofer Metal Name Role Phone Unknown, Unknown Primary Care Provider Samuel Ellsworth, PhD Unavailable [phone] Shiv Stephenson MD Unavailable [phone] Shiv Stephenson MD Primary Care Provider + Shirley Jones MD Primary Care Provider [phone] Shiv Stephenson MD Primary Care Provider + Zehra Osborne RNbalance wheel hand filer Provider Geoff Boo MD Primary Care Provider [phone] Pedro Brooks MD Primary Care Provider [phone] Encounter Details Date Type Department Care Team (Late st Contact Info) Description 05/16/[address] [facility] [address] [place] [address] Social History Tobacco Use Types Packs/Day Years Used Date Smoking Tobacco: Never Smokeless Tobacco: Never Alcohol Use Standard Drinks/Week Comments No 0 (1 standard drink = 0.6 oz pur e alcohol) Sex and Gender Information Value Date Recorded [...] documented as of this encounter Care Teams Roofer Metal Relationship Specialty Start Date End Date Unknown, Unknown, MD PCP - General 05/16/16 01/29/17 Shiv Stephenson MD [address] [place] [address] [email or web address] PCP - General Family Medicine 01/30/17 02/18/17 Shirley Jones MD [address] [place] [address] [email or web address] PCP - General Internal Medicine 02/19/17 11/28/18 Shiv Stephenson MD [address] [place] [address] [email or web address] PCP - General Family Medicine 11/29/18 09/14/19 Zehra Osborne RN [address] [place] [address] [email or web address] PCP - General Internal Medicine 09/15/19 01/13/20 Geoff Boo MD [address] [place] [address] [email or web address] PCP - General Internal Medicine 01/14/20 04/15/20 Todd, MD Pedro [address] [place] [address] PCP - General Geriatric Psychiatry 04/16/20 Samuel Da Silva MBBS, PhD [address] [place] [address] [email or web address] Historical LMR Provider 12/23/1603/12/21 Shiv Stephenson MD [address] [place] [address] [address] [place] [address] [email or web address] Historical LMR Provider 12/23/16 documented as of this encounter Additional Source Comments The information contained in this document represents components of the legal health record. It is not the complete legal health record.[facility]
--- OUTSIDE RECORDS SUMMARY | 2024-11-25 18:39 | XMS_ITS | Encounter Summary ---
Author Organization [employer] Address [address] [place] [address] Care Team Providers Care Senior Technical Editor Name Role Phone Name, Pedro OLGUIN Primary Care Provider [phone] Reason for Visit * Reason Onset Date Comments Referral 03/30/2023 Referral Authorized 04/03/2023 Encounter Details Date Type Department Care Team ([facility] st Contact Info) Description 03/30/2023 Telephone [facility] [address] [place], [place] [phone] Name, MD Pedro [address] [place] [address] Referral; Referral Authorized Social History Tobacco Use [...] EST Referral for Physical Therapy authorized to [facility] [address] [address] FAX [phone] Letter mailed to patient to book appt. [...] on filedocumented in this encounter Care Teams Senior Technical Editor Relationship Specialty Start Date End Date Name, MD Pedro [address] [place] [address] PCP - General Family Medicine 05/08/17 documented as of this encounter
--- OUTSIDE RECORDS SUMMARY | 2024-11-25 18:39 | XMS_ITS | Encounter Summary ---
Author Organization [facility] Address [address] [place] [address] Phone Care Team Providers Care Beam Builder Helper Name Role Phone Unknown, Unknown Primary Care Provider Samuel Ellsworth, PhD Unavailable [phone] Shiv Stephenson MD Unavailable [phone] Shiv Stephenson MD Primary Care Provider + Shirley Jones MD Primary Care Provider [phone] Shiv Stephenson MD Primary Care Provider + Zehra Osborne RNfruit worker Provider Geoff Boo MD Primary Care Provider [phone] Pedro Brooks MD Primary Care Provider [phone] Encounter Details Date Type Department Care Team (Late st Contact Info) Description 05/16/2016 Procedure Pass [facility] [address] [place] [address] Social History Tobacco Use Types Packs/Day Years [...] documented as of this encounter Care Teams Beam Builder Helper Relationship Specialty Start Date End Date Unknown, Unknown, MD PCP - General 05/16/16 01/29/17 Shiv Stephenson MD [address] [place] [address] [email or web address] PCP - General Family Medicine 01/30/17 02/18/17 Shirley Jones MD [address] [place] [address] [email or web address] PCP - General Internal Medicine 02/19/17 11/28/18 Shiv Stephenson MD [address] [place] [address] [email or web address] PCP - General Family Medicine 11/29/18 09/14/19 Zehra Osborne RN [address] [place] [address] [email or web address] PCP - General Internal Medicine 09/15/19 01/13/20 Geoff Boo MD [address] [place] [address] [email or web address] PCP - General Internal Medicine 01/14/20 04/15/20 Todd, MD Pedro [address] [place] [address] PCP - General Geriatric Psychiatry 04/16/20 Samuel Da Silva MBBS, PhD [address] [place] [address] [email or web address] Historical LMR Provider 12/23/1603/12/21 Shiv Stephenson MD [address] [place] [address] [address] [place] [address] [email or web address] Historical LMR Provider 12/23/16 documented as of this encounter Additional Source Comments The information contained in this document represents components of the legal health record. It is not the complete legal health record.[facility]
--- OUTSIDE RECORDS SUMMARY | 2024-11-25 18:39 | XMS_ITS | Encounter Summary ---
Author Organization [employer] Address [address] [facility] [address] 7[address] [place] [address] Care Team Providers Care Lease Broker Name Role Phone Name, Pedro OLGUIN Primary Care Provider [phone] Encounter Details Date Type Department Care Team (Latest Contact Info) Description 11/25/2024 Travel Social History Tobacco Use Types Packs/Day [...] documented as of this encounter Care Teams Lease Broker Relationship Specialty Start Date End Date Name, MD Pedro [address] [place] [address] PCP - General Family Medicine 05/08/17 documented as of this encounter
--- OUTSIDE RECORDS SUMMARY | 2024-11-25 18:40 | XMS_ITS | Encounter Summary ---
Author Organization [facility] Address [address] [place] [address] Phone Care Team Providers Care Personal Injury Paralegal Name Role Phone Unknown, Unknown Primary Care Provider Samuel Ellsworth, PhD Unavailable [phone] Shiv Stephenson MD Unavailable [phone] Shiv Stephenson MD Primary Care Provider + Shirley Jones MD Primary Care Provider Shiv Stephenson MD Primary Care Provider + Zehra Osborne RNhealth education director Provider [phone] Geoff Boo MD Primary Care Provider [phone] Pedro Brooks MD Primary Care Provider [phone] Encounter Details Date Type Department Care Team (Late st Contact Info) Description 06/28/2016 Procedure Pass [facility]. [facility] [address] 1st [place] [address] Social History Tobacco Use Types Packs/Day Years Used Date Smoking Tobacco: Never Smokeless Tobacco: Never Sex and Gender Information Value Date Recorded Sex Assigned at Not on file Legal Sex Male 4:30 PM EDT Gender Identity Not on file Sexual Orientation Not on file documented as of this encounter Functional Status * Patient is deaf or has serious difficulty with hearing Answer Date of Assessment Author No 05/22/2016 1:53 PM Mike Smart MD * 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, even when wearing glasses Answer Date of Assessment Author No 05/22/2016 1:53 PM Mike Smart MD * Patient has serious difficulty walking or climbing stairs (5yr old or older) Answer Date of Assessment Author No 05/22/2016 1:53 PM Mike Smart MD * Patient has serious difficulty dressing or bathing (5yr old or older) Answer Date of Assessment Author No 05/22/2016 1:53 PM Mike Smart MD * Patient has serious difficulty doing errands alone such as visiting a doctor???s office or shopping, due to physical, mental, or emotional condition (15 years old or older) Answer Date of Assessment Author No 05/22/2016 1:53 PM Mike Smart MD documented as of this encounter Mental Status * Patient has serious difficulty concentrating, remembering, or making decisions due to physical, mental, or emotional condition Answer Entry Date Author No 05/22/2016 1:53 PM Mike Smart MD documented in this encounter Plan of Treatment [...] documented as of this encounter Care Teams Personal Injury Paralegal Relationship Specialty Start Date End Date Unknown, Unknown, MD PCP - General 05/16/16 01/29/17 Shiv Stephenson MD [address] [place] [address] Flr [facility] [place] [id number] [email or web address] PCP - General Family Medicine 01/30/17 02/18/17 Shirley Jones MD [address] [place] [address], [address] [place] [address] [email or web address] PCP - General Internal Medicine 02/19/17 11/28/18 Shiv Stephenson MD [address] [place] [address] [email or web address] PCP - General Family Medicine 11/29/18 09/14/19 Zehra Osborne RN [address] [place] [address] [email or web address] PCP - General Internal Medicine 09/15/19 01/13/20 Geoff Boo MD [address] [place] [address] [email or web address] PCP - General Internal Medicine 01/14/20 04/15/20 Pedro Brooks MD [address] [place] [address] PCP - General Geriatric Psychiatry 04/16/20 Samuel Da Silva MBBS, PhD [address] [place] [address] [email or web address] Historical LMR Provider 12/23/1603/12/21 Shiv Stephenson MD [address] [place] [address] [email or web address] Historical LMR Provider 12/23/16 documented as of this encounter Additional Source Comments The information contained in this document represents components of the legal health record. It is not the complete legal health record.[facility]
--- OUTSIDE RECORDS SUMMARY | 2024-11-25 18:40 | XMS_ITS | Clinical Summary ---
Author Organization [employer] Address [address] [place] [address] 7t [place] [address] Care Team Providers Care Brush Washer Name Role Phone Name, Pedro OLGUIN Primary Care Provider [phone] Allergies No known active allergies Medications cyclobenzaprin [...] RECTUM TWICE A DAY 28 g 2 11/26/19 25 Active hydrocortisone (Anusol-HC) 2.5 % rectal cream INSERT INTO THE RECTUM TWICE A DAY 28 g 2 06/18/19 25 025 Discontinued(Re order (will not trigger notification to Pharmacy)) hydrocortisone (Anusol-HC) 2.5 % rectal cream INSERT INTO THE RECTUM TWICE A DAY 28 g 2 10/30/19 25 025 Discontinued(Re order (will not trigger notification [...] (02/19/2024): Patient is a 45-year-old. cisgender, , Yemeni-speaking male from [facility]. He was referred from Neurology team (Dr. Ramos and Charity) for support regarding nightmares and ongoing sleep disturbance. Presenting Problem: Nightmare that cause sleep disturbance: 3 years Always different People or animals that want to hurt him like actors See in color and feel awake Often wakes up in the middle of the night frightened Don't know what to do about the nightmares Last Assessment & Plan: Other stressors: Patient has a history of seizures and expressed that electric shock was once used. Current medication (750 mg) causes him to feel fatigued and aggressive towards family Sleep Dx: Patient carries a dx of LINDA and was prescribed a CPAP machine. Patient is fearful of using the machine because concerned it causes cancer Background/Culture: Born and raised in [facility] and moved to the in 2004 to provide family with better options. Patient lives with his Patient has three adult children 27, 25, 23 (in states) [place] living in the [place] Patients parents are alive and live in [facility] Patient has siblings and sees two of them frequently Childhood: Was pretty hard Encountered a war [...] assessment Patient is a 45-year-old. cisgender, , Yemeni-speaking male from [facility]. He was referred from Neurology team (Dr. Enriquez) for support regarding nightmares and ongoing sleep disturbance. Presenting Problem: Nightmare that cause sleep disturbance: 3 years Always different People or animals that want to hurt him like actors See in color and feel awake Often wakes up in the middle of the night frightened Don't know what to do about the nightmares Patient is a 45-year-old. cisgender, , [place]i-speaking male from [facility]. He was referred from Neurology team (Dr. Enriquez) for support regarding nightmares and ongoing sleep disturbance. Presenting Problem: Nightmare that cause sleep disturbance: 3 years Always different People or animals that want to hurt him like actors See in color and feel awake Often wakes up in the middle of the night frightened Don't know what to do about the nightmares Last Assessment & Plan: Other stressors: Patient has a history of seizures and expressed that electric shock was once used. Current medication (750 mg) causes him to feel fatigued and aggressive towards family Sleep Dx: Patient carries a dx of LINDA and was prescribed a CPAP machine. Patient is fearful of using the machine because concerned it causes cancer Background/Culture: Born and raised in [facility] and moved to the in 2004 to provide family with better options. Patient lives with his Patient has three adult children 27, 25, 23 (in states) Patient has [place] living [place] the [place] Patients parents are alive and live in [facility] Patient has siblings and sees two of them frequently Childhood: Was pretty hard Encountered a war [...] fatigued and aggressive towards family Sleep Dx: Patient carries a dx of LINDA and was prescribed a CPAP machine. Patient is fearful of using the machine because concerned it causes cancer Background/Culture: Born and raised in [facility] and moved to the in 2004 to provide family with better options. Patient lives with his Patient has three adult children 27, 25, 23 (in states) Patient [place] the [place] Patients parents are alive and live in [facility] Patient has siblings and sees two of them frequently Childhood: Was pretty hard Encountered a war [...] assessment Patient is a 45-year-old. cisgender, , [place]i-speaking male from [facility]. He was referred from Neurology team (Dr. Enriquez) for support regarding nightmares and ongoing sleep disturbance. Presenting Problem: Nightmare that cause sleep disturbance: 3 years Always different People or animals that want to hurt him like actors See in color and feel awake Often wakes up in the middle of the night frightened Don't know what to do about the nightmares Patient is a 45-year-old. cisgender, , [place]i-speaking male from [facility]. He was referred from Neurology team (Dr. Enriquez) for support regarding nightmares and ongoing sleep disturbance. Presenting Problem: Nightmare that cause sleep disturbance: 3 years Always different People or animals that want to hurt him like actors See in color and feel awake Often wakes up in the middle of the night frightened Don't know what to do about the nightmares Last Assessment & Plan: Other stressors: Patient has a history of seizures and expressed that electric shock was once used. Current medication (750 mg) causes him to feel fatigued and aggressive towards family Sleep Dx: Patient carries a dx of LINDA and was prescribed a CPAP machine. Patient is fearful of using the machine because concerned it causes cancer Background/Culture: Born and raised in [facility] [place] and moved to the in 2004 to provide family with better options. Patient lives with his Patient has three adult children 27, 25, 23 (in states) Patient has [place] living [place] the [place] Patients parents are alive and live in [facility] Patient has siblings and sees two of them frequently Childhood: Was pretty hard Encountered a war [...] 05/25/2017 Overview (05/28/2023): [place] [facility] [place] Seizure 01/31/2017 Overview (05/28/2023): Only one [...] had MRI, EEG and LP done at [facility]. Infectious etiologies for the demyelination were ruled [...] had MRI, EEG and LP done at [facility]. Infectious etiologies for the demyelination were ruled out. Repeat MRI of the brain did not showed new lesions. Impaired fasting glucose 03/07/2017 04/11/2023 Encounters Date Type Department Care Team Description 11/25/2024 3:30 PM EDT Office Visit [facility] [address] [place] [address] Pedro Brooks MD Hemorrhoids, unspecified hemorrhoid type (Primary Dx); Subclinical hypothyroidism 11/25/2024 Travel 11/24/[address] [phone] Andra Doe MA chart prep 10/28/2024 Refill [facility] [address] [place], [place] [phone] Pedro Brooks MD from Last 3 Months Immunizations Immunization Administration Dates Next Due Influenza injectable quadriv [...] Mass Index 30.7 11/25/2024 3:47 PM EDT Plan of Treatment Health Maintenance Due Date Last Done Comments CT Colonography 1973 FIT DNA/Cologuard 1973 FIT 1973 FOBT 1973 Sigmoidoscopy 1973 Family Planning (PISQ) 1988 Hepatitis B Vaccines (1 of 3 - 19+ 3-dose series) 1992 Zoster Vaccines (1 of 2) 05/21/2023 COVID-19 Vaccine ( season) 2024 07/22/2021, 05/27/2020, 04/29/2020 Influenza Vaccine (#1) 2024 , 01/10/2018, 05/08/2016 Depression Screening 06/24/2025 06/24/2024, 06/25/19 25 Diabetes: Hemoglobin A1C 06/24/2025 025, 06/25/2023, 07/22/2021, Additional history exists Disability Screening 06/24/2025 06/24/2024 SDOH Screening 06/24/2025 06/24/2024 Alcohol/Substance Use Screening 11/25/2025 11/25/2024 Tobacco Screening 11/25/2025 11/25/2024 Lipid Panel 06/24/2028 06/25/2023, 07/04, 10/15/2020 DTaP/Tdap/Td Vaccines (3 - Td or Tdap) 10/06/2030 10/06/2020, 06/24/2014 Colonoscopy 01/30/2033 01/30/2023 Colorectal Cancer Screening 01/30/2033 RSV Patients and Patients Aged 60 years or older (1 - 1-dose 75+ series) 2048 Pneumococcal Vaccine: 50+ Years Completed 06/24/2024 HIB [...] patient's age to complete this topic Meningococcal B Vaccine Aged Out No l onger eligible based on patient's age to complete [...] Procedure Name Priority Date/Time Associated Diagnosis Comments POCT GLYCATED HEMOGLOBIN, TOTAL Routine 06/24/2024 2:54 PM EDT Prediabetes LIPID PANEL, STANDARD Routine 06/25/2023 8:07 AM EDT Prediabetes HM COLONOSCOPY Routine 01/30/2023 from Last 3 Months or Most Recently Relevant to Health Maintenance Results * POCT HGB A1C (06/24/2024 2:54 PM EDT) Hemoglobin A1C 5.7 4.0 - 6.0 % QC Media Lot # [id number] Lot# Expiration Date [id number] Blood 06/24/2024 2:54 PM EDT us Pedro Name MD POINT OF CARE TEST ENTER/EDIT OR DERABLES Final Result * (ABNORMAL) Lipid Panel, Standard (06/25/2023 8:07 AM EDT) Triglycerides 203(H) <150 mg/dL [facility] Comment:Desirable Triglyceri de: less than 150 mg/dLBorderline High Triglyceride 150-199 mg/dLHigh Triglyceride: 200-499 mg/dLVery High Triglyceride: greater than or equal to 5OO mg/dL Cholesterol 199 <200 mg/dL [facility] Comment:Desirable Cholestero l: less than 200 mg/dLBorderline High Cholesterol: 200-239 mg/dLHigh Cholesterol: greater than 239 mg/dL LDL Cholesterol Calculated 118(H) <100 mg/dL [facility] Comment:Desirable LDL: less than 100 mg/dLNear Optimal/Above Optimal LDL: 110- 129 mg/dLBorderline High LDL: 130-159 mg/dLHigh LDL: 160-189 mg/dLVery High LDL: greater than or equal to 190 mg/dL HDL Cholesterol 41 >40 mg/dL [facility] Comment:Desirable HDL: great er than 40 mg/dL Note: This HDL assay may give artificially low results in patients with liver disease. Blood Venous blood specimen / Unknown 06/25/2023 8:07 AM EDT 06/25/2023 11:41 AM EDT us Pedro Brooks MD LAB BLOOD ORDERABLES Final Resul t [facility] [address] [place] [phone] * Hm Colonoscopy (01/30/2023) Colonoscopy Normal Normal us Pedro Brooks MD HEALTH MAINTENANCE Final Result from Last 3 Months or Most Recently Relevant to Health Maintenance [place] [place] [address] , [address] [address] [employer] Care Teams Brush Washer Relationship Specialty Start Date End Date Name, MD Pedro [address] [place] [address] PCP - General Family Medicine 05/08/17
--- OUTSIDE RECORDS SUMMARY | 2024-11-25 18:40 | XMS_ITS | Encounter Summary ---
Author Organization [facility] Address [address] [place] [address] Phone Care Team Providers Care Residential Mortgage Manager Name Role Phone Unknown, Unknown Primary Care Provider Samuel Ellsworth, PhD Unavailable [phone] Shiv Stephenson MD Unavailable [phone] Shiv Stephenson MD Primary Care Provider + Shirley Jones MD Primary Care Provider Shiv Stephenson MD Primary Care Provider + Zehra Osborne RNoxygen system tester Provider Geoff Boo MD Primary Care Provider [phone] Pedro Brooks MD Primary Care Provider [phone] Encounter Details Date Type Department Care Team (Late st Contact Info) Description 05/18/2016 Ophth Exam [facility] Neuro Oph [address] [address] Demond Kumari MD [address] [place] [address] [email or web address] Social History Tobacco Use Types [...] documented as of this encounter Care Teams Residential Mortgage Manager Relationship Specialty Start Date End Date Unknown, Unknown, MD PCP - General 05/16/16 01/29/17 Shiv Stephenson MD [address] [place] [address] [email or web address] PCP - General Family Medicine 01/30/17 02/18/17 Shirley Jones MD [address] [place] [address] [email or web address] PCP - General Internal Medicine 02/19/17 11/28/18 Shiv Stephenson MD [address] [place] [address] [email or web address] PCP - General Family Medicine 11/29/18 09/14/19 Zehra Osborne RN [address] [place] [address] [email or web address] PCP - General Internal Medicine 09/15/19 01/13/20 Geoff Boo MD [address] [place] [address] [email or web address] PCP - General Internal Medicine 01/14/20 04/15/20 Pedro Brooks MD [address] [place] [address] PCP - General Geriatric Psychiatry 04/16/20 Samuel Da Silva MBBS, PhD [address] [place] [address] [email or web address] Historical LMR Provider 12/23/1603/12/21 Shiv Stephenson MD [address] [place] [address] [address] [place] [address] [email or web address] Historical LMR Provider 12/23/16 documented as of this encounter Additional Source Comments The information contained in this document represents components of the legal health record. It is not the complete legal health record.[facility]
--- OUTSIDE RECORDS SUMMARY | 2024-11-25 18:40 | XMS_ITS | Clinical Summary ---
Author Organization [facility] Address [address] [place] [address] Phone Care Team Providers Care File Clerk Name Role Phone Shiv Stephenson MD Unavailable [phone] Name, Pedro OLGUIN Primary Care Provider [phone] Allergies No known active allergies Medications therapeutic multivitamin tablet Take 2 tablets by mouth daily. Active gabapentin (NEURONTIN) 100 MG capsuleIndicatio ns:Demyelinating disease of central nervous system Take 1 capsule (100 mg total) by mouth 3 (three) times a day. 100mg QHS for 1 wk, then 100 mg BID for 1 wk and then continue at 100 mg TID. 90 capsule 3 7 Active Additional Information Patient not taking.Reported on 09/06/2016 aspirin 81 MG EC tablet Take 81 mg by mouth daily. Active vitamins A,C,V-mzip-owbqu r (PRESERVISION AREDS) [id number] ijvu-ha-qssj Cap 1 capsule. Ac tive ibuprofen (ADVIL,MOTRIN) 600 MG tablet Active b complex vitamins capsule Take 1 capsule by mouth daily. Active rifAMPin (RIFADIN) 300 MG capsule Take 600 mg by mouth daily. Active cloNIDine HCL (CATAPRES) 0.1 MG tablet Take 0.1 mg by mouth. 1 Active prazosin (MINIPRESS) 1 MG capsule Take 1 mg by mouth. 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 Immunizations Immunization Administration Dates Next Due INFLUENZA, SPLIT VIRUS, TRIVALENT W/ PRESERVATIV E IM 05/05/2016 PPD Test 05/17/2016 Social History Tobacco Use Types Packs/Day Years Used Date Smoking Tobacco: Never Smokeless Tobacco: Never Tobacco Cessation:Counseling Given: No Alcohol Use Standard Drinks/Week Comments No 0 [...] on file Sexual Orientation Not on file Last Filed Vital Signs Vital Sign Reading Time Taken Comments Blood Pressure 100/60 01/14/2020 1:32 PM EST Pulse 70 01/14/2020 1:32 PM EST Temperature 36.3 C (97.4 F) 01/14/2020 1:32 PM EST Respiratory Rate 18 02/19/2017 12:43 PM EST Oxygen Saturation 95% 01/14/2020 1:32 PM EST Inhaled Oxygen Concentration - - Weight 88 kg (194 lb) 01/14/2020 1:32 PM EST Height 167.6 cm (5' 6 ) 01/14/2020 1:32 PM EST Body Mass Index 31.31 01/14/2020 1:32 PM EST Plan of Treatment Health Maintenance Due Date Last Done Comments Adult Td,Tdap Booster 1973 DEPRESSION SCREENING 1985 COLOGUARD 2018 COLONOSCOPY 2018 COLORECTAL CANCER SCREENING 2018 FIT TEST 2018 FOBT 2018 SIGMOIDOSCOPY 2018 VIRTUAL COLONOSCOPY 2018 PNEUMOCOCCAL VACCINES (50+ years) (1 of 1 - PCV) 05/21/2023 ZOSTER VACCINES (1 of 2) 05/21/2023 INFLUENZA VACCINE (#1) 2024 05/05/2016 COVID-19 VACCINE (3 - 2024-2 6 season) 2024 05/27/2020, 04/29/2020 LIPID PANEL 01/13/2025 01/14/2020, 05/17/2016 HIV ONE-TIME SCREENING (18-6 5 YEARS) Completed 05/17/2016 HEPATITIS C SCREENING Completed 07/17/2016 SMOKING STATUS SCREENING (On ce After 26 Yrs) Completed 01/14/2020 HIB VACCINES Aged Out No longer eligi ble based on patient's age to complete this topic MENINGOCOCCAL VACCINES (ACWY) Aged Out No longer eligible based on patient's age to complete this topic MENINGOCOCCAL VACCINES (B) Aged Out N o longer eligible based on patient's age to complete this topic Medical Devices Not on file Procedures Procedure Name Priority Date/Time Associated Diagnosis Comments LIPID PANEL Routine 01/14/2020 2:18 PM EST Impaired fasting glucose HEPATITIS C ANTIBODY, QUALITATIVE Routine 07/17/2016 10:39 AM EDT Latent tuberculosis from Last 3 Months or Most Recently Relevant to Health Maintenance Results * Lipid panel (01/14/2020 2:18 PM EST) HDL 40 mg/dL [facility] Comment: Interpretation <40 mg/dL: Low HDL cholesterol (major risk factor for CHD) Greater than or equal to 60 mg/dL: High HDL cholesterol ( negative risk factor for CHD) HDL - cholesterol is affected by a number of factors, e.g. smoking, excerise, hormones, sex and age. CHOLESTEROL 179 0 - 240 mg/dL [facility] TRIGLYCERIDES 122 30 - 160 mg/dL [facility] LDL 115 50 - 129 mg/dL [facility] Comment: LDL levels in terms of risk for coronary heart disease: <100 mg/dL: Optimal 100-129 mg/dL: Near or above optimal 130-159 mg/dL: Borderline high 160-189 mg/dL: High >190 mg/dL: Very High CARDIAC RISK RATIO 4.5 3.4 - 5.0 [facility] Blood 01/14/2020 2:18 PM EST 01/14/2020 2:22 PM EST us Geoff Boo MD LAB BLOOD ORDERABLES Final Result [facility] [address] [place] [address] * Hepatitis C antibody, qualitative ([facility] ,[facility] ,[facility] ,[facility] ,[facility] ,[facility] ,[facility]) (07/17/2016 10:39 AM EDT) HCV ANTIBODY Negative Negative [facility] Comment:Antibodies to HCV no t detected. Does not exclude the possibility of exposure to HCV. 07/17/2016 10:3 9 AM EDT 07/17/2016 3:09 PM EDT us Adrián Hightower MD, PhD LAB BLOOD ORDERABLES Final Result [address] [address] from Last 3 Months or Most Recently Relevant to Health Maintenance Insurance HEALTH SAF[employer]Y [place] [address] NON NSPG PCP [employer] [employer] NET PARTIAL NON NSP PCP [facility] Address: [address] [address] HEALTH SAFETY NET PARTIAL WELLSENSE NON NSPG PCP [employer] PARTIAL ENSE NON NSPG PCP [employer] NET PARTIAL Member Subscriber Plan / Payer (Ef fective 2020-Present) Name:Bartolo Webb Relation to Subscriber:Self Name:Bartolo Webb Payer ID:Not on file Group ID:Not on file Type:Medicaid Address: [address] NON NSPG PCP [facility] Address: [place] [address] SAFETY NET PARTIAL Member Subscriber Plan / Payer (Ef fective 2020-Present) Name:Bartolo Webb Relation to Subscriber:Self Name:Bartolo Webb Payer ID:Not on file Group ID:Not on file Type:Medicaid Address: [address] NON NSPG PCP [employer] NET PARTIAL PCP [facility] Address: [address] [place] [address] NET PARTIAL WELLSENSE NON NSPG PCP [employer] NET PARTIAL Member Subscriber Plan / Payer (Ef fective 2020-Present) Name:Bartolo Webb Relation to Subscriber:Self Name:Bartolo Webb Payer ID:Not on file Group ID:Not on file Type:Medicaid [address]SPG PCP [employer] [employer] [facility] Advance Directives For more information, please contact: [phone] (9AM - 5PM [place], Sunday-Sunday) * Full Code (Presumed) (Latest Code Status on File) Date Activated Date Inactivated Comments 05/16/2016 10:04 PM 05/22/2016 6:47 PM Care Teams File Clerk Relationship Specialty Start Date End Date Name, MD Pedro [address] [place] [address] PCP - General Geriatric Psychiatry 04/16/20 Shiv Stephenson MD [address] [place] [address] [address] [place] [address] [email or web address] Historical LMR Provider 12/23/16 Additional Source Comments The information contained in this document represents components of the legal health record. It is not the complete legal health record.[facility]
--- OUTSIDE RECORDS SUMMARY | 2024-11-25 18:40 | XMS_ITS | Encounter Summary ---
Author Organization [facility] Address [address] [place] [address] Phone Care Team Providers Care Analytical Research Chemist Name Role Phone Unknown, Unknown Primary Care Provider Samuel Ellsworth, PhD Unavailable [phone] Shiv Stephenson MD Unavailable [phone] Shiv Stephenson MD Primary Care Provider + Shirley Jones MD Primary Care Provider Shiv Stephenson MD Primary Care Provider + Zehra Osborne RNbank vault attendant Provider [phone] Geoff Boo MD Primary Care Provider Pedro Brooks MD Primary Care Provider [phone] Encounter Details Date Type Department Care Team (Late st Contact Info) Description 06/28/2016 Procedure Pass [facility] MRI. [facility] 1 [address] [facility], 1st [place] [address] Social History Tobacco Use Types Packs/Day Years [...] documented as of this encounter Care Teams Analytical Research Chemist Relationship Specialty Start Date End Date Unknown, Unknown, MD PCP - General 05/16/16 01/29/17 Shiv Stephenson MD [address] [place] [address] [facility] [facility] [place] [address] [email or web address] PCP - General Family Medicine 01/30/17 02/18/17 Shirley Jones MD [address] [place] [address], 2nd [place] [address] [email or web address] PCP - General Internal Medicine 02/19/17 11/28/18 Shiv Stephenson MD [address] [place] [address] [email or web address] PCP - General Family Medicine 11/29/18 09/14/19 Zehra Osborne RN [address] [place] [address] [email or web address] PCP - General Internal Medicine 09/15/19 01/13/20 Geoff Boo MD [address] [place] [address] [email or web address] PCP - General Internal Medicine 01/14/20 04/15/20 Pedro Brooks MD [address] [place] [address] PCP - General Geriatric Psychiatry 04/16/20 Samuel Da Silva MBBS, PhD [address] [place] [address] [email or web address] Historical LMR Provider 12/23/1603/12/21 Shiv Stephenson MD [address] [place] [address] [email or web address] Historical LMR Provider 12/23/16 documented as of this encounter Additional Source Comments The information contained in this document represents components of the legal health record. It is not the complete legal health record.[facility]
--- OUTSIDE RECORDS SUMMARY | 2024-11-25 18:40 | XMS_ITS | Encounter Summary ---
Author Organization [facility] Address [address] [place] [address] Phone Care Team Providers Care Staffing Associate Name Role Phone Samuel Da Silva, PhD Unavailable [phone] Shiv Stephenson MD Unavailable [phone] Shiv Stephenson MD Primary Care Provider + Shirley Jones MD Primary Care Provider Shiv Stephenson MD Primary Care Provider + Zehra Osborne RNmanager exchange Provider [phone] Geoff Boo MD Primary Care Provider Pedro Brooks MD Primary Care Provider Encounter Details Date Type Department Care Team (Late st Contact Info) Description 01/31/2017 Procedure Pass [facility] [place], Main [address], [address] 1 [place] [address] Social History Tobacco Use Types Packs/Day Years [...] of Assessment Author No 05/22/2016 1:53 PM EDT Mike Rogers MD * 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, even when wearing glasses Answer Date of Assessment Author No 05/22/2016 1:53 PM BAKARIT Mike Rogers MD * Patient has serious difficulty walking or climbing stairs (5yr old or older) Answer Date of Assessment Author No 05/22/2016 1:53 PM EDT Mike Rogers MD * Patient has serious difficulty dressing or bathing (5yr old or older) Answer Date of Assessment Author No 05/22/2016 1:53 PM EDT Mike Rogers MD * Patient has serious difficulty doing errands alone such as visiting a doctor???s office or shopping, due to physical, mental, or emotional condition (15 years old or older) Answer Date of Assessment Author No 05/22/2016 1:53 PM EDT Mike Rogers MD documented as of this encounter Mental Status * Patient has serious difficulty concentrating, remembering, or making decisions due to physical, mental, or emotional condition Answer Entry Date Author No 05/22/2016 1:53 PM EDT Mike Rogers MD documented in this encounter Plan of [...] documented as of this encounter Care Teams Staffing Associate Relationship Specialty Start Date End Date Shiv Stephenson MD [address] [place] [address] 2nd [place] [address] [email or web address] PCP - General Family Medicine 01/30/17 02/18/17 Shirley Jones MD [address] [place] [address], 2nd [place] [address] [email or web address] PCP - General Internal Medicine 02/19/17 11/28/18 Shiv Stephenson MD [address] [place] [address] [email or web address] PCP - General Family Medicine 11/29/18 09/14/19 Zehra Osborne RN [address] [place] [address] [email or web address] PCP - General Internal Medicine 09/15/19 01/13/20 Geoff Boo MD [address] [place] [address] [email or web address] PCP - General Internal Medicine 01/14/20 04/15/20 Pedro Brooks MD [address] [place] [address] PCP - General Geriatric Psychiatry 04/16/20 Samuel Da Silva MBBS, PhD [address] [place] [address] [email or web address] Historical LMR Provider 12/23/1603/12/21 Shiv Stephenson MD [address] [place] [address] [email or web address] Historical LMR Provider 12/23/16 documented as of this encounter Additional Source Comments The information contained in this document represents components of the legal health record. It is not the complete legal health record.[facility]
--- OUTSIDE RECORDS SUMMARY | 2024-11-25 18:40 | XMS_ITS | Encounter Summary ---
Author Organization [facility] Address [address] [place] [address] Phone Care Team Providers Care Flame Hardening Machine Setter Name Role Phone Unknown, Unknown Primary Care Provider Samuel Ellsworth, PhD Unavailable [phone] Shiv Stephenson MD Unavailable [phone] Shiv Stephenson MD Primary Care Provider + Shirley Jones MD Primary Care Provider Shiv Stephenson MD Primary Care Provider + Zehra Osborne RNux design manager Provider Geoff Boo MD Primary Care Provider [phone] Pedro Brooks MD Primary Care Provider [phone] Encounter Details Date Type Department Care Team (Late st Contact Info) Description 05/17/2016 Procedure Pass [facility] MRI, [place] [address] [facility], 2nd [place] [address] Social History Tobacco Use Types Packs/Day Years [...] documented as of this encounter Care Teams Flame Hardening Machine Setter Relationship Specialty Start Date End Date Unknown, Unknown, MD PCP - General 05/16/16 01/29/17 Shiv Stephenson MD [address] [place] [address] [email or web address] PCP - General Family Medicine 01/30/17 02/18/17 Shirley Jones MD [address] [place] [address] [email or web address] PCP - General Internal Medicine 02/19/17 11/28/18 Shiv Stephenson MD [address] [place] [address] [email or web address] PCP - General Family Medicine 11/29/18 09/14/19 Zehra Osborne RN [address] [place] [address] [email or web address] PCP - General Internal Medicine 09/15/19 01/13/20 Geoff Boo MD [address] [place] [address] [email or web address] PCP - General Internal Medicine 01/14/20 04/15/20 Pedro Brooks MD [address] [place] [address] PCP - General Geriatric Psychiatry 04/16/20 Samuel Da Silva MBBS, PhD [address] [place] [address] [email or web address] Historical LMR Provider 12/23/1603/12/21 Shiv Stephenson MD [address] [place] [address] [address] [place] [facility] [place] [address] [email or web address] Historical LMR Provider 12/23/16 documented as of this encounter Additional Source Comments The information contained in this document represents components of the legal health record. It is not the complete legal health record.[facility]
--- OUTSIDE RECORDS SUMMARY | 2024-11-25 18:40 | XMS_ITS | Encounter Summary ---
Author Organization [facility] Address [address] [place] [address] Phone Care Team Providers Care Security Associate Name Role Phone Samuel Da Silva, PhD Unavailable [phone] Shiv Stephenson MD Unavailable Shiv Stephenson MD Primary Care Provider + Shirley Jones MD Primary Care Provider [phone] Shiv Stephenson MD Primary Care Provider + Zehra Osborne RNiron miner blasting Provider [phone] Geoff Boo MD Primary Care Provider Pedro Brooks MD Primary Care Provider [phone] Encounter Details Date Type Department Care Team (Late st Contact Info) Description 01/30/2017 Procedure Pass [facility] [address] [place] [address] Social History Tobacco Use Types Packs/Day Years [...] Entry Date Author No 05/22/2016 1:53 PM BAKARIT Mike Rogers MD documented in this encounter [...] documented as of this encounter Care Teams Security Associate Relationship Specialty Start Date End Date Shiv Stephenson MD [address] [place] [address] 2nd [place] [address] [email or web address] PCP - General Family Medicine 01/30/17 02/18/17 Shirley Jones MD [address] [place] [address], 2nd [place] [address] [email or web address] PCP - General Internal Medicine 02/19/17 11/28/18 Shiv Stephenson MD [address] [place] [address], [address] [place] [address] [email or web address] PCP - General Family Medicine 11/29/18 09/14/19 Zehra Osborne RN [address] [place] [address] [email or web address] PCP - General Internal Medicine 09/15/19 01/13/20 Geoff Boo MD [address] [place] [address] [email or web address] PCP - General Internal Medicine 01/14/20 04/15/20 Pedro Brooks MD [address] [place] [address] PCP - General Geriatric Psychiatry 04/16/20 Samuel Da Silva MBBS, PhD [address] [place] [address] [email or web address] Historical LMR Provider 12/23/1603/12/21 Shiv Stephenson MD [address] [place] [address] [address] [place] [address] [email or web address] Historical LMR Provider 12/23/16 documented as of this encounter Additional Source Comments The information contained in this document represents components of the legal health record. It is not the complete legal health record.[facility]
--- OUTSIDE RECORDS SUMMARY | 2024-11-25 18:40 | XMS_ITS | Encounter Summary ---
Author Organization Formerly [facility] Address [address] [place] [address] Phone Care Team Providers Care Utility Tender Carding Name Role Phone Unknown, Unknown Primary Care Provider Samuel Ellsworth, PhD Unavailable [phone] Shiv Stephenson MD Unavailable [phone] Shiv Stephenson MD Primary Care Provider + Shirley Jones MD Primary Care Provider [phone] Shiv Stephenson MD Primary Care Provider + Zehra Osborne RNsecurity ambassador Provider [phone] Geoff Boo MD Primary Care Provider Pedro Brooks MD Primary Care Provider [phone] Encounter Details Date Type Department Care Team (Late st Contact Info) Description 06/28/2016 Procedure Pass [facility] MRI. [facility] [address] [facility], [address] [place] [address] Social History Tobacco Use Types Packs/Day Years [...] documented as of this encounter Care Teams Utility Tender Carding Relationship Specialty Start Date End Date Unknown, Unknown, MD PCP - General 05/16/16 01/29/17 Shiv Stephenson MD [address] [place] [address] [facility] [place] [address] [email or web address] PCP - General Family Medicine 01/30/17 02/18/17 Shirley Jones MD [address] [place] [address], [address] [place] [address] [email or web address] PCP - General Internal Medicine 02/19/17 11/28/18 Shiv Stephenson MD [address] [place] [id number] [email or web address] PCP - General Family Medicine 11/29/18 09/14/19 Zehra Osborne RN [address] [place] [id number] [email or web address] PCP - General Internal Medicine 09/15/19 01/13/20 Geoff Boo MD [address] [place] [id number] [email or web address] PCP - General Internal Medicine 01/14/20 04/15/20 Pedro Brooks MD [address] [place] [id number] PCP - General Geriatric Psychiatry 04/16/20 Samuel Da Silva MBBS, PhD [address] [place] [id number] [email or web address] Historical LMR Provider 12/23/1603/12/21 Shiv Stephenson MD [address] [place] [id number] [email or web address] Historical LMR Provider 12/23/16 documented as of this encounter Additional Source Comments The information contained in this document represents components of the legal health record. It is not the complete legal health record.[facility]ly [facility]
== END 2024-11-25 16:17 | disposition home or self-care (01) ==
LOC: HO.HHCL 16:16
PROVIDERS: PCP Internal Medicine Geriatric Medicine; Visit Provider Internal Medicine Geriatric Medicine
DX: E03.8 Other specified hypothyroidism (principal)
CPT/HCPCS: 36415; 84443